=== PATIENT | female | born 1975 | race Caucasian/White ===

== ENCOUNTER → 2016-12-08 | Outpatient (CLI) | payer OTHER, MEDICAID ==
[~2016-12-08] MED LIST: AMBI10TA PO; AMBI5TAB PO; VENL75TA PO
== END ==
LOC: HPND 07:55
PROVIDERS: ATTEND Obstetrics & Gynecology
DX: O09.513 Supervision of elderly primigravida, third trimester (principal)
CPT/HCPCS: 76811

== ENCOUNTER → 2017-01-19 | Outpatient (CLI) | payer OTHER | LOC: HPND 08:04 | PROVIDERS: ATTEND Obstetrics & Gynecology | DX: O09.529 Supervision of elderly multigravida, unspecified trimester (principal) | CPT/HCPCS: 76816 ==

== ENCOUNTER 2017-02-06 11:23 | Inpatient (IN) | payer OTHER, MEDICAID ==
[2017-02-06] VITALS (10 sets, daily range): BP systolic 106–119; BP diastolic 57–68; PULSE 89–98; RESP 18; TEMP 97.6–98.5
[~2017-02-06] VITALS: Ht 170.2 cm; Wt 79.4 kg
[2017-02-06 12:23] LABS: BACTERIA, URINE RARE /hpf; BLOOD, URINE NEG (NEG); COMMENT (UR) CULT NOT INDICATED; CULTURE IF INDICATED CULT NOT INDICATED; GLUCOSE,URINE NEG (NEG); KETONE, URINE NEG (NEG); NITRITE,URINE NEG (NEG); PH, URINE 6.5 (5.0-8.5); SQUAMOUS EPITHELIAL CELL URINE <1 /hpf (0-5); URINE COLOR LIGHT-YELLOW (YELLW/STRAW)
--- NOTE | 2017-02-06 12:47 | PD ---
HPI Chief Complaint Ms. Vo Date Seen: Feb 06, 2017 Travel History International Travel<30 Days: No Contact w/Intl Traveler<30Days: No Known Affected Area: No History of Present Illness HPI Ms. Vo is a 41 yo at 28 5/7 weeks (KAT 04/26/2017) who presents with multiple complaints. Patient states that since Sunday, she has had "pressure" in her groin and feeling as if she is "bearing down." Patient also reports back pain. Patient states that some of this pain is constant, but that she also feels irregular contractions. Patient states that she lost her mucous plug Sunday which was associated with a "tinge of blood" patient denies any other vaginal bleeding since 24 weeks gestation. Patient reports decreased movement for the past 6 days. Patient states that she thought that she recently had rupture of membranes approximately one week ago but that she was previously evaluated and told she did not rupture. Patient reports shortness of breath secondary to pain. Patient denies chest pain. No significant headache, vision changes, or dysuria. Patient reports unremarkable history with exception of vaginal bleeding at 24 weeks gestation. Patient chronically has anxiety and ADHD; she takes Effexor and Ambien during . Patient took Klonopin and Adderall prior to learning she was but is not taking since. Para: 4 : 6 Miscarriage: 1 History Past Medical History Narrative Medical Anxiety Insomnia ADHD Eczema Obstetric History Obstetric History Most recent- delivery at 36 weeks GA, vaginal 3 prior vaginal deliveries from 3840 weeks GA 1 early miscarriage Past Surgical History Narrative Surgical Tonsillectomy Family History Family History: Negative Social History Alcohol Use: No Tobacco Use: No Substance Abuse: No Allergies-Medications (Allergen,Severity, Reaction): Coded Allergies: No Known Allergies (Verified , 06/13/09) Uncoded Allergies: SEASONAL (Allergy, Mild, 06/13/09) Review of Systems General / Constitutional: No: Fever, Chills Eyes: No: Blurred Vision HENT: No: Headaches Cardiovascular: No: Chest Pain or Discomfort Respiratory: Short of Breath (due to pain) Gastrointestinal: Abdominal Pain Genitourinary: No: Dysuria Psychiatric: Anxiety Physical Exam BP 129/84 HR 96 RR 16 T 98.2 Narrative GENERAL: Well-nourished, well-developed patient. SKIN: Warm and dry. HEAD: Normocephalic and atraumatic. EYES: No scleral icterus. No injection or drainage. ENT: No nasal drainage noted. Mucous membranes pink. Airway patent. NECK: Supple, trachea midline. No JVD. CARDIOVASCULAR: Regular rate and rhythm without murmurs, gallops, or rubs. RESPIRATORY: CTAB, normal rate ABDOMEN/GI: Abdomen soft, non-tender, bowel sounds present, no rebound, no guarding Gravid EXTREMITIES: No cyanosis or edema. BACK: Back pain present NEUROLOGICAL: Awake and alert. Motor and sensory function grossly within normal limits. GENITOURINARY: External Genitalia: intact and normal in appearance Dilatation: 0cm Membranes: Amnisure positive 2 Uterine Contractions: Uterine irritability FHT's: Category: 1 Baseline: 130 Reactive: Y Variability: Mod Decels: None Data Data Vital Signs Reviewed: Yes Orders Urinalysis - C+S If Indicated (02/06/17 12:06) Labs Laboratory Tests Test 02/06/17 11:50 Urine Color LIGHT-YELLOW Urine Turbidity CLEAR Urine pH 6.5 Urine Specific [place] 1.005 Urine Protein NEG Urine Glucose (UA) NEG Urine Ketones NEG Urine Occult Blood NEG Urine Nitrite NEG Urine Bilirubin NEG Urine Urobilinogen LESS THAN 2.0 Urine Leukocyte Esterase TRACE Urine WBC LESS THAN 1 Urine Squamous Epithelial <1 Cells Urine Bacteria RARE Microscopic Urinalysis Comment CULT NOT INDICATED MDM Medical Record Reviewed: Yes Narrative Course / MDM 41 yo at 28 5/7 weeks (KAT 04/26/2017) -Cat 1 rhythm -Abdominal pain -Amnisure + x2 Plan: -Will admit patient for PPROM -Will give betamethasone 12 mg every 24 hours to -Will give ampicillin/erythromycin -UDS ordered -CBC ordered -GBS ordered -We'll start IVF -We'll check ultrasound to evaluate amniotic fluid and cervical length Jean Burroughs MD R2 Feb 06, 2017 12:47
--- NOTE | 2017-02-06 13:21 | HHI.HP ---
HPI Chief Complaint Leakage of fluid abdominal pain, loss of mucous plug Date Seen: Feb 06, 2017 Travel History International Travel<30 Days: No Contact w/Intl Traveler<30Days: No Known Affected Area: No History of Present Illness HPI The patient is a 41-year-old white female now [address] West for care presents complaining of back pain ,back pressure ,lower abdominal pain ,leakage of fluid loss of her mucous plug, she denies vaginal bleeding. heart tones are within normal limits no regular contractions seen some uterine irritability noted. Patient's amnio sure today with positive twice Para: 4 : 6 History Obstetric History Obstetric History 4 vaginal deliveries last 36 weeks water broke that time prematurely Social History Alcohol Use: No Tobacco Use: No Substance Abuse: No Allergies-Medications (Allergen,Severity, Reaction): Coded Allergies: No Known Allergies (Verified , 06/13/09) Uncoded Allergies: SEASONAL (Allergy, Mild, 06/13/09) Review of Systems General / Constitutional: No: Fever, Weight Gain, Chills, Other Eyes: No: Diploplia, Blurred Vision, Visual changes, Pain, Photophobia HENT: No: Headaches, Vertigo, Lightheadedness Cardiovascular: No: Irregular Rhythm, Chest Pain or Discomfort, Palpitations, Tachycardia, Syncope, Varicosities, Edema, Cyanosis Respiratory: No: Cough, Short of Breath, Other Gastrointestinal: Abdominal Pain, No: Nausea, Vomiting, Diarrhea Genitourinary: Pelvic Pain, No: Decreased Urinary Output, Oliguria Musculoskeletal: No: Limited ROM, Weakness, Cramping, Edema, Pain Skin: No Rash, No Itching, No Dryness, No Lumps, No Change in Pigmentation, No Change in Nails, No Alopecia, No Lesions Neurologic: No: Weakness, Dizziness, Syncope, Focal Abnormalities, Coordination Problem, Headache, Slurred Speech, Seizures Psychiatric: No: Depression, Suicidal Ideations, Homicidal Ideation Endocrine: No: Heat Intolerance, Cold Intolerance, Polydipsia, Polyuria, Other Physical Exam Narrative GENERAL: Well-nourished, well-developed patient. SKIN: Warm and dry. HEAD: Normocephalic and atraumatic. EYES: No scleral icterus. No injection or drainage. ENT: No nasal drainage noted. Mucous membranes pink. Airway patent. NECK: Supple, trachea midline. No JVD. CARDIOVASCULAR: Regular rate and rhythm without murmurs, gallops, or rubs. RESPIRATORY: Breath sounds equal bilaterally. No accessory muscle use. BREASTS: Bilateral exam showed no masses , no retractions, no nipple discharge. ABDOMEN/GI: Abdomen soft, 1-2 + -tender in lower quads, bowel sounds present, no rebound, no guarding Gravid to [-28] weeks size Fundal Height: [-28] GENITOURINARY: External Genitalia: intact and normal in appearance spec exam -- minimal white discharge wet prep done cx appears thick and closed Cervix: [-] Dilatation: [-Closed] Effacement: [-] Thick Station: [-3] Membranes: ruptured] amnio sure positive twice a day Uterine Contractions: [Positive irritability-] FHT's: Category: [1-] Baseline: [-144] Reactive: [yes-] Variability: [mod-] Decels: Occasional variable-] EXTREMITIES: No cyanosis or edema. BACK: Nontender without obvious deformity. No CVA tenderness. NEUROLOGICAL: Awake and alert. Motor and sensory grossly within normal limits. Five out of 5 muscle strength in all muscle groups. Normal speech. Data Data Orders Urinalysis - C+S If Indicated (02/06/17 12:06) Labs Amnio sure positive 2 Laboratory Tests Test 02/06/17 11:50 Urine Color LIGHT-YELLOW Urine Turbidity CLEAR Urine pH 6.5 Urine Specific [place] 1.005 Urine Protein NEG Urine Glucose (UA) NEG Urine Ketones NEG Urine Occult Blood NEG Urine Nitrite NEG Urine Bilirubin NEG Urine Urobilinogen LESS THAN 2.0 Urine Leukocyte Esterase TRACE Urine WBC LESS THAN 1 Urine Squamous Epithelial <1 Cells Urine Bacteria RARE Microscopic Urinalysis Comment CULT NOT INDICATED Assessment/Plan Assessment and Plan This patient is 41-year-old white female 28 weeks presents planning of abdominal pain back pain and leakage of fluid on and off the minimal way, denies bleeding, baby is decreased movement, amnio sure positive twice today the plan to treat the patient has she is PPROM 28 weeks will get an ultrasound for fluid volume and cervical length. Her doctor Dr. West and will contact her and let her know patient is being admitted the hospital. Carter Guillen II, MD Feb 06, 2017 13:21
[2017-02-06] MEDS ORDERED: SODIUM CHLORIDE 0.9% FLUSH 10 ML FLUSH IV FLUSH PRN (13:30)
[2017-02-06] MEDS ORDERED: ONDANSETRON HCL 4 MG/2 ML VIAL IV PRN (13:30)
[2017-02-06] MEDS ORDERED: CALCIUM GLUCONATE 10% 1 GM/10 ML VIAL IV PRN (13:30)
[2017-02-06] MEDS ORDERED: ACETAMINOPHEN 325 MG TAB PO PRN (13:30)
[2017-02-06] MEDS: AMPICILLIN INJ 2,000 MG in SODIUM CHLORIDE 0.9% INJ 100 ML IV SCH ×3 (14:33→22:37)
[2017-02-06] MEDS: LACTATED RINGER'S 1000 ML INJ 1,000 ML IV SCH ×2 (14:34→22:37)
[2017-02-06] MEDS: BETAMETHASONE SOD PHOS/ACETATE SUSP 30 MG/5 ML VIAL IM SCH (14:34)
[2017-02-06 14:40] LABS: AMPHETAMINE, URINE NEG (NEG); BARBITURATES, URINE NEG (NEG); COCAINE, URINE NEG (NEG)
[2017-02-06] MEDS: ERYTHROMYCIN ETHYLSUCCINATE 400 MG TAB PO SCH ×2 (18:04→22:38)
[2017-02-06 18:28] LABS: AUTOMATED NEUTROPHIL # 12.4 TH/MM3 (1.8-7.7); BASOPHIL # 0.1 TH/MM3 (0-0.2); BASOPHIL % 0.5 % (0.0-2.0); EOSINOPHIL # 0.2 TH/MM3 (0-0.4); EOSINOPHIL % 1.2 % (0.0-4.0); HEMATOCRIT 31.7 % (35.0-46.0); LYMPH % 12.5 % (9.0-44.0); MEAN CELL VOLUME 71.6 FL (80.0-100.0); MEAN CORPUSCULAR HEMOGLOBIN 21.8 PG (27.0-34.0); MEAN CORPUSCULAR HGB CONC 30.5 % (32.0-36.0); MONO % 6.5 % (0.0-8.0); NEUT % 79.3 % (16.0-70.0); PLATELET COUNT 252 TH/MM3 (150-450); RED BLOOD COUNT 4.44 MIL/MM3 (4.00-5.30); RED CELL DISTRIBUTION WIDTH 16.7 % (11.6-17.2); WHITE BLOOD COUNT 15.7 TH/MM3 (4.0-11.0)
[2017-02-06 18:30] LABS: HEMO FLAGS AUTO DIFF
[2017-02-06 18:34] LABS: ALT (GPT) 13 U/L (10-53); AST (GOT) 20 U/L (15-37); URIC ACID 3.2 MG/DL (2.6-6.0)
[2017-02-06 18:36] LABS: ALKALINE PHOSPHATASE 114 U/L (45-117); INDIRECT BILIRUBIN 0.3 MG/DL (0.0-0.8); TOTAL BILIRUBIN ADULT 0.4 MG/DL (0.2-1.0)
[2017-02-06 19:17] LABS: PLATELET ESTIMATE SMEAR NORMAL (NORMAL); PLATELET MORPHOLOGY NORMAL (NORMAL); SCAN/DIFF AUTO DIFF CONFIRMED
[2017-02-06] MEDS: SODIUM CHLORIDE 0.9% FLUSH 10 ML FLUSH IV FLUSH SCH (21:00)
[2017-02-06] MEDS: ZOLPIDEM TARTRATE 5 MG TAB PO PRN (22:38)
--- NOTE | 2017-02-06 22:41 | PD.LABORPN ---
Subjective Subjective pt states she came in for pain and pelvic pressure, not LOF. states she constantly feels wet. pt was evaluated on 01/27 at [facility] with neg amnisure Objective Vital Signs Vital Signs Date Time Temp Pulse Resp B/P Pulse Ox O2 Delivery O2 Flow Rate FiO2 02/06/17 22:02 18 02/06/17 19:39 18 02/06/17 19:38 98 119/57 02/06/17 19:36 98.5 02/06/17 18:00 97.6 02/06/17 18:00 97.7 02/06/17 17:00 18 02/06/17 16:46 98 118/64 02/06/17 15:00 97.9 18 Objective Abd gravid, NT Ext NT, no edema FHT's: Category: [-] 1 Baseline: [-] Reactive: [-] Variability: [-] Decels: [-] Assessment/Plan Problem List: (1) premature rupture of membranes in third trimester Plan: cont abx, steroids, watch for s/sx of chorio, will repeat KULDEEP in 1 wk if stable, sooner prn reviewed condition with pt and FOB. all questions answered Bartolo West MD Feb 06, 2017 22:41
[2017-02-07] VITALS (12 sets, daily range): BP systolic 103–116; BP diastolic 51–69; PULSE 92–120; RESP 17–18; TEMP 98.1–98.2
[2017-02-07] MEDS: AMPICILLIN INJ 2,000 MG in SODIUM CHLORIDE 0.9% INJ 100 ML IV SCH ×6 (02:00→22:04)
[2017-02-07] MEDS: ERYTHROMYCIN ETHYLSUCCINATE 400 MG TAB PO SCH ×4 (06:00→23:59)
[2017-02-07 06:07] LABS: AUTOMATED NEUTROPHIL # 14.9 TH/MM3 (1.8-7.7); BASOPHIL % 0.1 % (0.0-2.0); HEMATOCRIT 27.5 % (35.0-46.0); LYMPH % 5.3 % (9.0-44.0); LYMPHOCYTE # 0.9 TH/MM3 (1.0-4.8); MEAN CELL VOLUME 69.6 FL (80.0-100.0); MEAN CORPUSCULAR HEMOGLOBIN 22.4 PG (27.0-34.0); MEAN CORPUSCULAR HGB CONC 32.2 % (32.0-36.0); MONO % 3.6 % (0.0-8.0); PLATELET COUNT 236 TH/MM3 (150-450); RED BLOOD COUNT 3.94 MIL/MM3 (4.00-5.30); RED CELL DISTRIBUTION WIDTH 16.7 % (11.6-17.2); WHITE BLOOD COUNT 16.3 TH/MM3 (4.0-11.0)
[2017-02-07 06:11] LABS: HEMO FLAGS AUTO DIFF
[2017-02-07 07:42] LABS: SCAN/DIFF AUTO DIFF CONFIRMED
[2017-02-07] MEDS ORDERED: VENL75TA PO (08:10)
[2017-02-07] MEDS ORDERED: AMBI10TA PO (08:13)
[2017-02-07] MEDS: SODIUM CHLORIDE 0.9% FLUSH 10 ML FLUSH IV FLUSH SCH ×2 (09:00→22:05)
[2017-02-07] MEDS: MULTIVIT/MIN/PREN/FOL AC/IRON PRENATAL TAB PO SCH (09:40)
[2017-02-07] MEDS: LACTATED RINGER'S 1000 ML INJ 1,000 ML IV SCH (13:30)
[2017-02-07] MEDS: BETAMETHASONE SOD PHOS/ACETATE SUSP 30 MG/5 ML VIAL IM SCH (14:07)
[2017-02-07] MEDS: PANTOPRAZOLE SODIUM 40 MG VIAL IV PUSH SCH (14:32)
--- NOTE | 2017-02-07 21:17 | PD.OB.ANTE ---
Subjective Diagnosis: (1) premature rupture of membranes in third trimester Interval History pt continues to c/o LOF with movement. +FM, occasional cramping. denies vaginal bleeding. pt c/o sob/anxiety prior to receiving her effexor this am, states symptoms resolved shortly after she took her effexor. Objective Vital Signs Vital Signs Date Time Temp Pulse Resp B/P Pulse Ox O2 Delivery O2 Flow Rate FiO2 02/07/17 11:37 104 114/54 02/07/17 10:45 120 02/07/17 10:29 98.1 02/07/17 10:25 117 02/07/17 10:23 115 103/56 02/07/17 10:20 117 02/07/17 10:16 17 02/07/17 10:15 112 111/51 02/07/17 08:00 98.2 18 02/07/17 07:57 102 116/69 02/07/17 06:26 18 02/07/17 06:22 92 108/59 02/06/17 23:00 98.5 18 02/06/17 22:59 89 106/60 02/06/17 22:02 18 Lab & Micro Results Test 02/06/17 02/07/17 22:30 05:20 Group B Streptococcus (PCR) POSITIVE White Blood Count 16.3 TH/MM3 Red Blood Count 3.94 MIL/MM3 Hemoglobin 8.8 GM/DL Hematocrit 27.5 % Mean Corpuscular Volume 69.6 FL Mean Corpuscular Hemoglobin 22.4 PG Mean Corpuscular Hemoglobin 32.2 % Concent Red Cell Distribution Width 16.7 % Platelet Count 236 TH/MM3 Mean Platelet Volume 9.3 FL Neutrophils (%) (Auto) 91.0 % Lymphocytes (%) (Auto) 5.3 % Monocytes (%) (Auto) 3.6 % Eosinophils (%) (Auto) 0.0 % Basophils (%) (Auto) 0.1 % Neutrophils # (Auto) 14.9 TH/MM3 Lymphocytes # (Auto) 0.9 TH/MM3 Monocytes # (Auto) 0.6 TH/MM3 Eosinophils # (Auto) 0.0 TH/MM3 Basophils # (Auto) 0.0 TH/MM3 CBC Comment AUTO DIFF Differential Comment AUTO DIFF CONFIRMED Physical Exam GENERAL: Well-nourished, well-developed patient. CARDIOVASCULAR: Regular rate and rhythm without murmurs, gallops, or rubs. RESPIRATORY: Breath sounds equal bilaterally. No accessory muscle use. ABDOMEN/GI: Abdomen soft, non-tender. Fundus: [-] GENITOURINARY: FHT's: Category: [-] 1 Baseline: [-] Reactive: [-] Variability: [-] Decels: [-] EXTREMITIES: No cyanosis or edema, non-tender, without signs of DVT. Assessment and Plan Problem List: (1) premature rupture of membranes in third trimester Status: Acute Assessment & Plan: cont abx day 2 s/p steroids watch for s/sx of chorio, will repeat KULDEEP on sunday with an KULDEEP check, sooner prBartolo Bonilla MD Feb 07, 2017 21:17
[2017-02-07] MEDS: ZOLPIDEM TARTRATE 5 MG TAB PO PRN (22:03)
[2017-02-08] MEDS: AMPICILLIN INJ 2,000 MG in SODIUM CHLORIDE 0.9% INJ 100 ML IV SCH ×6 (02:12→21:17)
[2017-02-08] MEDS: ERYTHROMYCIN ETHYLSUCCINATE 400 MG TAB PO SCH ×4 (05:58→23:54)
[2017-02-08 06:03] LABS: AUTOMATED NEUTROPHIL # 17.7 TH/MM3 (1.8-7.7); BASOPHIL % 0.1 % (0.0-2.0); HEMATOCRIT 27.3 % (35.0-46.0); LYMPH % 6.9 % (9.0-44.0); LYMPHOCYTE # 1.4 TH/MM3 (1.0-4.8); MEAN CORPUSCULAR HEMOGLOBIN 22.1 PG (27.0-34.0); MEAN CORPUSCULAR HGB CONC 31.2 % (32.0-36.0); MONO % 4.7 % (0.0-8.0); NEUT % 88.3 % (16.0-70.0); PLATELET COUNT 235 TH/MM3 (150-450); RED BLOOD COUNT 3.84 MIL/MM3 (4.00-5.30); RED CELL DISTRIBUTION WIDTH 16.6 % (11.6-17.2)
[2017-02-08 06:04] LABS: HEMO FLAGS AUTO DIFF
[2017-02-08 07:20] LABS: BANDS 7 % (0-6); EOSINOPHILS 1 % (0-4); NEUTROPHIL # MANUAL DIFF 17.4 TH/MM3 (1.8-7.7); POLYS (SEG NEUTROPHILS) 80 % (16-70); WBC DIFF SAMPLE 100
[2017-02-08 07:21] LABS: OVALOCYTES 1+ (NORMAL); PLATELET ESTIMATE SMEAR NORMAL (NORMAL); PLATELET MORPHOLOGY NORMAL (NORMAL); SCAN/DIFF FINAL DIFF MANUAL
[2017-02-08] MEDS: VENLAFAXINE HCL XR 75 MG CAP PO SCH (08:32)
[2017-02-08] MEDS: MULTIVIT/MIN/PREN/FOL AC/IRON PRENATAL TAB PO SCH (08:32)
[2017-02-08] MEDS: SODIUM CHLORIDE 0.9% FLUSH 10 ML FLUSH IV FLUSH SCH ×2 (08:33→21:00)
[2017-02-08] MEDS: PANTOPRAZOLE SODIUM 40 MG VIAL IV PUSH SCH (14:11)
[2017-02-08] MEDS: FERROUS SULFATE 325 MG (65 MG ELEMENTAL IRON) TAB PO SCH (21:16)
[2017-02-08] MEDS: DOCUSATE SODIUM 100 MG CAP PO SCH (21:16)
--- NOTE | 2017-02-08 22:50 | PD.OB.ANTE ---
Subjective Diagnosis: (1) premature rupture of membranes in third trimester Interval History +FM, LOF with standing and sitting up. +increased pressure and cramping. denies vaginal bleeding. Objective Lab & Micro Results Test 02/08/17 04:39 White Blood Count 20.0 TH/MM3 Red Blood Count 3.84 MIL/MM3 Hemoglobin 8.5 GM/DL Hematocrit 27.3 % Mean Corpuscular Volume 71.0 FL Mean Corpuscular Hemoglobin 22.1 PG Mean Corpuscular Hemoglobin 31.2 % Concent Red Cell Distribution Width 16.6 % Platelet Count 235 TH/MM3 Mean Platelet Volume 9.2 FL Neutrophils (%) (Auto) 88.3 % Lymphocytes (%) (Auto) 6.9 % Monocytes (%) (Auto) 4.7 % Eosinophils (%) (Auto) 0.0 % Basophils (%) (Auto) 0.1 % Neutrophils # (Auto) 17.7 TH/MM3 Lymphocytes # (Auto) 1.4 TH/MM3 Monocytes # (Auto) 1.0 TH/MM3 Eosinophils # (Auto) 0.0 TH/MM3 Basophils # (Auto) 0.0 TH/MM3 CBC Comment AUTO DIFF Differential Total Cells 100 Counted Neutrophils % (Manual) 80 % Band Neutrophils % 7 % Lymphocytes % 6 % Monocytes % 6 % Eosinophils % 1 % Neutrophils # (Manual) 17.4 TH/MM3 Differential Comment FINAL DIFF MANUAL Platelet Estimate NORMAL Platelet Morphology Comment NORMAL Ovalocytes 1+ Physical Exam GENERAL: Well-nourished, well-developed patient. CARDIOVASCULAR: Regular rate and rhythm without murmurs, gallops, or rubs. RESPIRATORY: Breath sounds equal bilaterally. No accessory muscle use. ABDOMEN/GI: Abdomen soft, non-tender. Fundus: [-] GENITOURINARY: External Genitalia: intact and normal in appearance, + evidence of LOF FHT's: Category: [-] 1 Baseline: [-] Reactive: [-] Variability: [-] Decels: [-] EXTREMITIES: No cyanosis or edema, non-tender, without signs of DVT. Assessment and Plan Problem List: (1) premature rupture of membranes in third trimester Status: Acute Assessment & Plan: cont abx day 3 s/p steroids watch for s/sx of chorio, will repeat KULDEEP on sunday with an KULDEEP check, sooner prn start iron and colace cont effexor West,Tedra E. MD Feb 08, 2017 22:50
[2017-02-09] MEDS: AMPICILLIN INJ 2,000 MG in SODIUM CHLORIDE 0.9% INJ 100 ML IV SCH ×3 (02:00→09:26)
[2017-02-09 06:00] LABS: AUTOMATED NEUTROPHIL # 15.1 TH/MM3 (1.8-7.7); BASOPHIL % 0.2 % (0.0-2.0); EOSINOPHIL # 0.1 TH/MM3 (0-0.4); EOSINOPHIL % 0.4 % (0.0-4.0); HEMATOCRIT 26.4 % (35.0-46.0); LYMPH % 8.4 % (9.0-44.0); LYMPHOCYTE # 1.6 TH/MM3 (1.0-4.8); MEAN CELL VOLUME 70.7 FL (80.0-100.0); MEAN CORPUSCULAR HEMOGLOBIN 22.3 PG (27.0-34.0); MEAN CORPUSCULAR HGB CONC 31.5 % (32.0-36.0); PLATELET COUNT 242 TH/MM3 (150-450); RED BLOOD COUNT 3.74 MIL/MM3 (4.00-5.30); RED CELL DISTRIBUTION WIDTH 16.7 % (11.6-17.2); WHITE BLOOD COUNT 18.4 TH/MM3 (4.0-11.0)
[2017-02-09] MEDS: ERYTHROMYCIN ETHYLSUCCINATE 400 MG TAB PO SCH ×3 (06:00→17:59)
[2017-02-09 06:03] LABS: HEMO FLAGS AUTO DIFF
[2017-02-09 07:02] LABS: OVALOCYTES 1+ (NORMAL); PLATELET ESTIMATE SMEAR NORMAL (NORMAL); PLATELET MORPHOLOGY NORMAL (NORMAL); SCAN/DIFF AUTO DIFF CONFIRMED
[2017-02-09] MEDS: SODIUM CHLORIDE 0.9% FLUSH 10 ML FLUSH IV FLUSH SCH (09:26)
[2017-02-09] MEDS: FERROUS SULFATE 325 MG (65 MG ELEMENTAL IRON) TAB PO SCH ×2 (09:26→21:11)
[2017-02-09] MEDS: DOCUSATE SODIUM 100 MG CAP PO SCH ×2 (09:26→21:11)
[2017-02-09] MEDS: MULTIVIT/MIN/PREN/FOL AC/IRON PRENATAL TAB PO SCH (09:26)
[2017-02-09] MEDS: VENLAFAXINE HCL XR 75 MG CAP PO SCH (10:12)
[2017-02-09 10:18] LABS: BATH SALTS (MDPV) UR NEG (NEG); ECSTASY (MDMA) UR NEG (NEG); GABAPENTIN UR NEG (NEG); HEROIN (6-ACETYLMORPHINE) UR NEG (NEG); HYDROMORPHONE U NEG (NEG); K2 SPICE UR NEG (NEG); OBMETHADONE UR NEG (NEG); OXYCODONE (PERCODAN) NEG (NEG); PHENCYCLIDINE URINE NEG (NEG)
--- NOTE | 2017-02-09 12:39 | PD.OB.ANTE ---
Subjective Diagnosis: (1) premature rupture of membranes in third trimester Antepartum ROS: Reports: Loss of fluid (continues with movement), movement normal Objective Lab & Micro Results Test 02/09/17 05:27 White Blood Count 18.4 TH/MM3 Red Blood Count 3.74 MIL/MM3 Hemoglobin 8.3 GM/DL Hematocrit 26.4 % Mean Corpuscular Volume 70.7 FL Mean Corpuscular Hemoglobin 22.3 PG Mean Corpuscular Hemoglobin 31.5 % Concent Red Cell Distribution Width 16.7 % Platelet Count 242 TH/MM3 Mean Platelet Volume 8.8 FL Neutrophils (%) (Auto) 82.0 % Lymphocytes (%) (Auto) 8.4 % Monocytes (%) (Auto) 9.0 % Eosinophils (%) (Auto) 0.4 % Basophils (%) (Auto) 0.2 % Neutrophils # (Auto) 15.1 TH/MM3 Lymphocytes # (Auto) 1.6 TH/MM3 Monocytes # (Auto) 1.7 TH/MM3 Eosinophils # (Auto) 0.1 TH/MM3 Basophils # (Auto) 0.0 TH/MM3 CBC Comment AUTO DIFF Differential Comment AUTO DIFF CONFIRMED Platelet Estimate NORMAL Platelet Morphology Comment NORMAL Ovalocytes 1+ Physical Exam GENERAL: Well-nourished, well-developed patient. CARDIOVASCULAR: Regular rate and rhythm without murmurs, gallops, or rubs. RESPIRATORY: Breath sounds equal bilaterally. No accessory muscle use. ABDOMEN/GI: Abdomen soft, non-tender. Fundus: [-] GENITOURINARY: FHT's: Category: [-] 1 Baseline: [-] Reactive: [-] Variability: [-] Decels: [-] EXTREMITIES: No cyanosis or edema, non-tender, without signs of DVT. Assessment and Plan Problem List: (1) premature rupture of membranes in third trimester Status: Acute Assessment & Plan: cont abx day 3, now on po s/p steroids 02/06 and 02/07 watch for s/sx of chorio, will repeat KULDEEP on sunday with an KULDEEP check, sooner prn cont iron and colace cont effexor Bartolo West MD Feb 09, 2017 12:38
[2017-02-09] MEDS: PANTOPRAZOLE SODIUM 40 MG VIAL IV PUSH SCH (13:50)
[2017-02-09] MEDS: AMOXICILLIN/CLAVULANATE K 500 MG TAB PO SCH (21:11)
[2017-02-09] MEDS: ZOLPIDEM TARTRATE 5 MG TAB PO PRN (21:15)
[2017-02-10] MEDS: ERYTHROMYCIN ETHYLSUCCINATE 400 MG TAB PO SCH ×4 (00:12→17:50)
--- NOTE | 2017-02-10 08:28 | PD.OB.ANTE ---
Subjective Diagnosis: (1) premature rupture of membranes in third trimester Diagnosis: Principal Antepartum ROS: Reports: Loss of fluid Objective Vital Signs stable Physical Exam GENERAL: Well-nourished, well-developed patient. . ABDOMEN/GI: Abdomen soft, non-tender. Fundus: [-] GENITOURINARY: External Genitalia: intact and normal in appearance Cervix: not checked Dilatation: [-] Effacement: [-] Station: [-] Presentation: [-] Membranes: [-] Uterine Contractions: [-] FHT's: Category: [-] Baseline: [-] Reactive: [-] Variability: [-] Decels: [-] EXTREMITIES: No cyanosis or edema, non-tender, without signs of DVT. Assessment and Plan Problem List: (1) premature rupture of membranes in third trimester Status: Acute Assessment & Plan: cont abx day 4, now on po s/p steroids 02/06 and 02/07 watch for s/sx of chorio, will repeat KULDEEP on sunday with an KULDEEP check, sooner prn cont iron and colace cont effexor CBC done 12/12 Brian Coyne MD Feb 10, 2017 08:28
[2017-02-10] MEDS: FERROUS SULFATE 325 MG (65 MG ELEMENTAL IRON) TAB PO SCH ×2 (08:30→21:38)
[2017-02-10] MEDS: AMOXICILLIN/CLAVULANATE K 500 MG TAB PO SCH ×2 (08:30→21:38)
[2017-02-10] MEDS: MULTIVIT/MIN/PREN/FOL AC/IRON PRENATAL TAB PO SCH (08:30)
[2017-02-10] MEDS: DOCUSATE SODIUM 100 MG CAP PO SCH ×2 (08:30→21:38)
[2017-02-10] MEDS: VENLAFAXINE HCL XR 75 MG CAP PO SCH (08:30)
[2017-02-10] MEDS: SODIUM CHLORIDE 0.9% FLUSH 10 ML FLUSH IV FLUSH SCH ×2 (09:00→21:00)
[2017-02-10] MEDS: ZOLPIDEM TARTRATE 5 MG TAB PO PRN (21:55)
[2017-02-11] MEDS: ERYTHROMYCIN ETHYLSUCCINATE 400 MG TAB PO SCH ×4 (00:10→18:03)
[2017-02-11] MEDS: AMOXICILLIN/CLAVULANATE K 500 MG TAB PO SCH ×2 (08:51→21:54)
[2017-02-11] MEDS: FERROUS SULFATE 325 MG (65 MG ELEMENTAL IRON) TAB PO SCH ×2 (08:51→21:54)
[2017-02-11] MEDS: VENLAFAXINE HCL XR 75 MG CAP PO SCH (08:51)
[2017-02-11] MEDS: DOCUSATE SODIUM 100 MG CAP PO SCH ×2 (08:52→21:54)
[2017-02-11] MEDS: MULTIVIT/MIN/PREN/FOL AC/IRON PRENATAL TAB PO SCH (08:53)
[2017-02-11] MEDS: SODIUM CHLORIDE 0.9% FLUSH 10 ML FLUSH IV FLUSH SCH (09:00)
--- NOTE | 2017-02-11 10:04 | PD.OB.ANTE ---
Subjective Diagnosis: (1) premature rupture of membranes in third trimester Diagnosis: Principal Antepartum ROS: Reports: movement normal Objective Physical Exam GENERAL: Well-nourished, well-developed patient. CARDIOVASCULAR: Regular rate and rhythm without murmurs, gallops, or rubs. RESPIRATORY: Breath sounds equal bilaterally. No accessory muscle use. ABDOMEN/GI: Abdomen soft, non-tender. Fundus: [-] GENITOURINARY: External Genitalia: intact and normal in appearance Cervix: deferred Dilatation: [-] Effacement: [-] Station: [-] Presentation: [-] Membranes: [-] Uterine Contractions: [-] FHT's: Category: [-] Baseline: [-] Reactive: [-] Variability: [-] Decels: [-] EXTREMITIES: No cyanosis or edema, non-tender, without signs of DVT. Assessment and Plan Problem List: (1) premature rupture of membranes in third trimester Status: Acute Assessment & Plan: cont abx day 5, now on po s/p steroids 02/06 and 02/07 watch for s/sx of chorio, will repeat KULDEEP on sunday with an KULDEEP check, sooner prn cont iron and colace cont effexor CBC for 02/12/2017 Brian Coyne MD Feb 11, 2017 10:04
[2017-02-11] MEDS ORDERED: LORazepam 1 MG TAB PO PRN (15:00)
[2017-02-11] MEDS: ZOLPIDEM TARTRATE 5 MG TAB PO PRN (21:54)
[2017-02-12] MEDS: ERYTHROMYCIN ETHYLSUCCINATE 400 MG TAB PO SCH ×5 (00:59→23:57)
[2017-02-12 06:16] LABS: AUTOMATED NEUTROPHIL # 13.7 TH/MM3 (1.8-7.7); BASOPHIL % 0.1 % (0.0-2.0); EOSINOPHIL # 0.4 TH/MM3 (0-0.4); EOSINOPHIL % 2.3 % (0.0-4.0); HEMATOCRIT 28.2 % (35.0-46.0); LYMPH % 11.2 % (9.0-44.0); MEAN CELL VOLUME 70.1 FL (80.0-100.0); MEAN CORPUSCULAR HEMOGLOBIN 22.3 PG (27.0-34.0); MEAN CORPUSCULAR HGB CONC 31.8 % (32.0-36.0); NEUT % 77.4 % (16.0-70.0); PLATELET COUNT 270 TH/MM3 (150-450); RED BLOOD COUNT 4.02 MIL/MM3 (4.00-5.30); RED CELL DISTRIBUTION WIDTH 17.2 % (11.6-17.2); WHITE BLOOD COUNT 17.7 TH/MM3 (4.0-11.0)
[2017-02-12 06:22] LABS: HEMO FLAGS AUTO DIFF
[2017-02-12 08:12] LABS: BANDS 1 % (0-6); EOSINOPHILS 1 % (0-4); METAMYELOCYTES 1 % (0-1); MYELOCYTES 2 % (0-0); NEUTROPHIL # MANUAL DIFF 14.2 TH/MM3 (1.8-7.7); PLATELET ESTIMATE SMEAR NORMAL (NORMAL); PLATELET MORPHOLOGY ENLARGED (NORMAL); POLYS (SEG NEUTROPHILS) 76 % (16-70); WBC DIFF SAMPLE 100
[2017-02-12 08:13] LABS: SCAN/DIFF FINAL DIFF MANUAL
[2017-02-12] MEDS: SODIUM CHLORIDE 0.9% FLUSH 10 ML FLUSH IV FLUSH SCH ×3 (09:00→21:13)
[2017-02-12] MEDS: DOCUSATE SODIUM 100 MG CAP PO SCH ×2 (09:03→21:13)
[2017-02-12] MEDS: VENLAFAXINE HCL XR 75 MG CAP PO SCH (09:03)
[2017-02-12] MEDS: FERROUS SULFATE 325 MG (65 MG ELEMENTAL IRON) TAB PO SCH ×2 (09:03→21:14)
[2017-02-12] MEDS: MULTIVIT/MIN/PREN/FOL AC/IRON PRENATAL TAB PO SCH (09:03)
[2017-02-12] MEDS: AMOXICILLIN/CLAVULANATE K 500 MG TAB PO SCH ×2 (09:03→21:13)
--- NOTE | 2017-02-12 11:32 | PD.OB.ANTE ---
Subjective Diagnosis: (1) premature rupture of membranes in third trimester Interval History pt continues to c/o of intermittent LOF and vaginal dryness/irritation Objective Lab & Micro Results Test 02/12/17 05:04 White Blood Count 17.7 TH/MM3 Red Blood Count 4.02 MIL/MM3 Hemoglobin 9.0 GM/DL Hematocrit 28.2 % Mean Corpuscular Volume 70.1 FL Mean Corpuscular Hemoglobin 22.3 PG Mean Corpuscular Hemoglobin 31.8 % Concent Red Cell Distribution Width 17.2 % Platelet Count 270 TH/MM3 Mean Platelet Volume 9.1 FL Neutrophils (%) (Auto) 77.4 % Lymphocytes (%) (Auto) 11.2 % Monocytes (%) (Auto) 9.0 % Eosinophils (%) (Auto) 2.3 % Basophils (%) (Auto) 0.1 % Neutrophils # (Auto) 13.7 TH/MM3 Lymphocytes # (Auto) 2.0 TH/MM3 Monocytes # (Auto) 1.6 TH/MM3 Eosinophils # (Auto) 0.4 TH/MM3 Basophils # (Auto) 0.0 TH/MM3 CBC Comment AUTO DIFF Differential Total Cells 100 Counted Neutrophils % (Manual) 76 % Band Neutrophils % 1 % Lymphocytes % 15 % Monocytes % 4 % Eosinophils % 1 % Neutrophils # (Manual) 14.2 TH/MM3 Metamyelocytes 1 % Myelocytes 2 % Differential Comment FINAL DIFF MANUAL Platelet Estimate NORMAL Platelet Morphology Comment ENLARGED Physical Exam GENERAL: Well-nourished, well-developed patient. CARDIOVASCULAR: Regular rate and rhythm without murmurs, gallops, or rubs. RESPIRATORY: Breath sounds equal bilaterally. No accessory muscle use. ABDOMEN/GI: Abdomen soft, non-tender. Fundus: [-] GENITOURINARY: External Genitalia: intact and normal in appearance Cervix: [-] visually closed SPEC: grossly nl vaginal d/c, no pooling noted FHT's: Category: [-] 1 Baseline: [-] 140s EXTREMITIES: No cyanosis or edema, non-tender, without signs of DVT. Assessment and Plan Problem List: (1) premature rupture of membranes in third trimester Status: Acute Assessment & Plan: cont abx day 6, now on po s/p steroids 02/06 and 02/07 no s/sx of chorio, will repeat KULDEEP on tmorrow with a MFM consult repeat amnisure today was negative, suspect pt may have sealed over cont iron and colace cont effexor Bartolo West MD February 12, 2017 11:31
[2017-02-12] MEDS: BETAMETHASONE/CLOTRIMAZOLE CREAM 15 GM TOPICAL SCH ×2 (16:09→21:15)
[2017-02-12] MEDS ORDERED: TERCONAZOLE 0.4% VAG CR 45 GM TUBE VAGINAL SCH (21:00)
[2017-02-12] MEDS: ZOLPIDEM TARTRATE 5 MG TAB PO PRN (21:14)
[2017-02-13] MEDS: ERYTHROMYCIN ETHYLSUCCINATE 400 MG TAB PO SCH ×2 (06:05→11:50)
[2017-02-13] MEDS: BETAMETHASONE/CLOTRIMAZOLE CREAM 15 GM TOPICAL SCH (09:21)
[2017-02-13] MEDS: AMOXICILLIN/CLAVULANATE K 500 MG TAB PO SCH (09:21)
[2017-02-13] MEDS: FERROUS SULFATE 325 MG (65 MG ELEMENTAL IRON) TAB PO SCH (09:21)
[2017-02-13] MEDS: VENLAFAXINE HCL XR 75 MG CAP PO SCH (09:21)
[2017-02-13] MEDS: MULTIVIT/MIN/PREN/FOL AC/IRON PRENATAL TAB PO SCH (09:21)
[2017-02-13] MEDS: DOCUSATE SODIUM 100 MG CAP PO SCH (09:21)
[2017-02-13] MEDS: SODIUM CHLORIDE 0.9% FLUSH 10 ML FLUSH IV FLUSH SCH (09:30)
[2017-02-13] MEDS ORDERED: AMBI5TAB PO (13:37)
--- NOTE | 2017-02-13 23:13 | HHI.DS ---
Admission Date Feb 06, 2017 at 13:14 Discharge Date: February 13, 2017 Admitting Diagnosis PPROM at 28 wks Diagnosis: Brief History Ms. Vo is a 41 yo at 28 5/7 weeks (KAT 04/26/2017) who presents with multiple complaints. Patient states that since Sunday, she has had "pressure" in her groin and feeling as if she is "bearing down." Patient also reports back pain. Patient states that some of this pain is constant, but that she also feels irregular contractions. Patient states that she lost her mucous plug Sunday which was associated with a "tinge of blood" patient denies any other vaginal bleeding since 24 weeks gestation. Patient reports decreased movement for the past 6 days. Patient states that she thought that she recently had rupture of membranes approximately one week ago but that she was previously evaluated and told she did not rupture. Patient reports shortness of breath secondary to pain. Patient denies chest pain. No significant headache, vision changes, or dysuria. Patient reports unremarkable history with exception of vaginal bleeding at 24 weeks gestation. Patient chronically has anxiety and ADHD; she takes Effexor and Ambien during . Patient took Klonopin and Adderall prior to learning she was but is not taking since. Hospital Course pt was admitted on 02/06. she was given steroids and treated with antibiotics for 7 days. on day 6, pt c/o of vaginal irritation and dryness, a sterile speculum exam was performed and no pooling or blood was noted. also another amnisure was collected and it was negative. On day 7 another u/s was performed the patients KULDEEP remained normal and essentially unchanged from 02/06 at 16. The case was reviewed with Dr. Garcia ([facility]) who suggested that the patient could have sealed over a high leak and felt patient could be sent home with close outpatient follow up (twice per week) and infections precautions. All of the above was reviewed with the patient. She agrees to close follow up and will call or come in with any concerns. Pt Condition on Discharge: Stable Discharge Disposition: Discharge Home Discharge Instructions Diet Instructions: As Tolerated, No Restrictions Activities You Can Perform: Continue Bedrest Activities to Avoid: Weight Bearing, Prolonged Standing, Strenuous Activity, Sexual Activity Additional Activity Instruc.: modified bedrest for remainder of Bartolo West MD February 13, 2017 23:13
== END 2017-02-13 14:57 | disposition home or self-care (01) | DRG 781 ==
LOC: HOBED 11:23 → H2EB 13:14
PROVIDERS: ADMIT Obstetrics & Gynecology; ATTEND Obstetrics & Gynecology
DX: O42.913 Preterm premature rupture of membranes, unspecified as to length of time between rupture and onset of labor, third trimester (principal); O99.343 Other mental disorders complicating pregnancy, third trimester; F41.9 Anxiety disorder, unspecified; F90.9 Attention-deficit hyperactivity disorder, unspecified type; N89.8 Other specified noninflammatory disorders of vagina; Z3A.28 28 weeks gestation of pregnancy
CPT/HCPCS: 76815; 76816; 80076; 80307; 81001; 84112; 84550; 85007; 85025; 85027; 87150; 87210; 99285; C9113; G0481; J0290; J0702; J7120

== ENCOUNTER 2017-02-20 13:13 | Emergency (ER) | payer OTHER ==
[2017-02-20 13:34] VITALS: BP 140/91; PULSE 123
[2017-02-20 13:40] VITALS: RESP 20; TEMP 98
--- NOTE | 2017-02-20 14:12 | PD ---
HPI Chief Complaint concern for ROM Date Seen: February 20, 2017 (Jean Burroughs MD R2) Travel History International Travel<30 Days: No Contact w/Intl Traveler<30Days: No (Jean Burroughs MD R2) History of Present Illness HPI Mrs. Vo is a 41-year-old patient of Dr. West at 30 5/7 weeks ( KAT 04/26/2017) who presents at request of Dr. West for Amnisure and assessment of amniotic fluid index via ultrasound. [Per nursing discussion w/ Dr. West, patient with +nitrizine, negative pooling and no ferning in office. ] Patient states that she was laying down in bed Sunday when she noticed "gushing" of approximately 1012 ounces of clear fluid which she states was not urine. Patient reports continued intermittent leaking of clearish fluid from her vagina since then. Patient denies any vaginal bleeding. Patient reports feeling her gestation move less for the past approximately 2 weeks but still feels movement. Patient denies any feelings of contractions. Patient does not report other complaints such as chest pain, shortness of breath, leg swelling, dysuria, or fever/chills. Per review of records, patient was recently admitted 02/06 for concern for ROM; patient was treated with betamethasone and antibiotics. Subsequent amateur negative and vaginal exam reassuring. Repeat ultrasounds with normal/ unchanged KULDEEP. MFM consulted, it was suspected that patient had high week and could be sent home with close follow-up. Since this time, patient has been followed up closely with Dr. West. Para: 4 : 7 Miscarriage: 2 (Jean Burroughs MD R2) History Past Medical History Narrative Medical Anxiety Insomnia ADHD Eczema (Jean Burroughs MD R2) Obstetric History Obstetric History Most recent- delivery at 36 weeks GA, vaginal 3 prior vaginal deliveries from 3840 weeks GA 1 early miscarriage (Jean Burroughs MD R2) Past Surgical History Narrative Surgical Tonsillectomy (Jean Burroughs MD R2) Family History Family History: Negative (Jean Burroughs MD R2) Social History Alcohol Use: No Tobacco Use: No Substance Abuse: No (Jean Burroughs MD R2) Allergies-Medications (Allergen,Severity, Reaction): Coded Allergies: No Known Allergies (Verified , 02/06/17) Uncoded Allergies: SEASONAL (Allergy, Mild, 06/13/09) Home Meds Active Scripts Zolpidem (Ambien)5 Mg Tab5 Mg PO HS PRN (INSOMNIA) #60 TAB Prov:Bartolo West MD 02/13/17 Reported Medications Zolpidem (Ambien)10 Mg TabUnknown Dose PO HS PRN (INSOMNIA) Ref 0 02/07/17 Venlafaxine (Effexor)75 Mg Tab75 Mg PO DAILY #30 TAB Ref 0 02/07/17 Physical Exam BP 140/91 HR 123 RR 20 T 98F Narrative GENERAL: Well-nourished, well-developed patient. SKIN: Warm and dry. HEAD: Normocephalic and atraumatic. EYES: No scleral icterus. No injection or drainage. ENT: No nasal drainage noted. Mucous membranes pink. Airway patent. NECK: Supple, trachea midline. No JVD. CARDIOVASCULAR: Tachycardic, predominately regular but frequent pauses suggestive of frequent PVC's RESPIRATORY: Breath sounds equal bilaterally. No accessory muscle use. ABDOMEN/GI: Abdomen soft, non-tender, bowel sounds present, no rebound, no guarding Gravid GENITOURINARY: External Genitalia: intact and normal in appearance Membranes: Amnisure negative Uterine Contractions: Irritability FHT's: Category: 1 Baseline: 150 Reactive: Y Variability: Mod Decels: None (Jean Burroughs MD R2) Data Data Orders Vital Signs (Adult) .ON ADMISSION (02/20/17 13:38) ^ Labor Status (02/20/17 13:38) Pamg-1 Test .ONCE (02/20/17 13:38) Us Ob Pelvis >14 Wks Fetus (02/20/17 ) (Jean Burroughs MD R2) MDM Medical Record Reviewed: Yes Narrative Course / MDM 41-year-old patient of Dr. West at 30 5/7 weeks (KAT 04/26/2017) who presents at request of Dr. West for Amnisure and assessment of amniotic fluid index via ultrasound -Recent treatment with Betamethasone x2 and antibiotics for suspected ROM; subsequently sent home w/ close follow-up -Maternal vital signs: BP 140/91, MHR 123 -Cat 1 rhythm -Amnisure negative Plan: -Will check US for KULDEEP, BPP -Cont EFM -Will monitor maternal VS and consider additional work-up Interval: US- per verbal report, patient with KULDEEP 16, normal BPP Repeat BP 124/66, HR 104 Updated plan: Patient reassured regarding normal KULDEEP and lack of ROM; patient may follow-up with Dr. West Regarding mild tachycardia, patient encouraged to discuss further w/ PCP regarding potential TSH check as outpatient Patient with normal (Jean Burroughs MD R2) Medical Record Reviewed: Yes Attending Attestation The exam, history, and the medical decision-making described in the above note were completed with the assistance of the resident provider. I reviewed and agree with the findings presented. I attest that I had a [id number] encounter with the patient on the same day, and personally performed and documented my assessment and findings in the medical record. (Isela Smith MD) Diagnosis Diagnosis: Primary Impression: No leakage of amniotic fluid into vagina Additional Impression: 30 weeks gestation of Disposition: DISCHARGE HOME Condition: Stable Jean Burroughs MD R2 February 20, 2017 14:11 Isela Smith MD February 20, 2017 14:35
[2017-02-20 14:22] VITALS: BP 124/66; PULSE 104
== END 2017-02-20 14:51 | disposition home or self-care (01) ==
LOC: HOBED 13:13
DX: O26.893 Other specified pregnancy related conditions, third trimester (principal); Z3A.30 30 weeks gestation of pregnancy
CPT/HCPCS: 76815; 84112; 99284

== ENCOUNTER 2017-03-04 22:51 | Emergency (ER) | payer OTHER ==
--- NOTE | 2017-03-05 00:03 | PD ---
HPI Chief Complaint bleeding Date Seen: March 05, 2017 Travel History International Travel<30 Days: No Contact w/Intl Traveler<30Days: No Known Affected Area: No History of Present Illness HPI This is a 41y/o at 32w3d who presented to the [facility] with reports of vaginal spotting this evening and came in right away. Pt reports leakage of fluid with a positive amnisure noted on which was positive again on repeat and finally negative the next day. She received antibiotics and completed a course of steroids. FFN negative on 03/02/2017. Pt denies contractions with reports of active movements. She believes her water is still "broken" from her last encounter. care with Dr. West, records reviewed, complicated by: 1. Aminsure positive times 2, then negative, s/p betamethasone on admission in , d/c after 1 week 2. AMA Para: 4 : 6 Miscarriage: 1 History Past Medical History Narrative Medical Anxiety ADHD Eczema Obstetric History Obstetric History 4 FT 1 sab Past Surgical History Narrative Surgical h/o Tonsillectomy Family History Family History: Negative Social History Alcohol Use: No Tobacco Use: No Substance Abuse: No Allergies-Medications (Allergen,Severity, Reaction): Coded Allergies: No Known Allergies (Verified , 02/06/17) Uncoded Allergies: SEASONAL (Allergy, Mild, 06/13/09) Home Meds Active Scripts Zolpidem (Ambien)5 Mg Tab5 Mg PO HS PRN (INSOMNIA) #60 TAB Prov:Bartolo West MD 02/13/17 Reported Medications Zolpidem (Ambien)10 Mg TabUnknown Dose PO HS PRN (INSOMNIA) Ref 0 02/07/17 Venlafaxine (Effexor)75 Mg Tab75 Mg PO DAILY #30 TAB Ref 0 02/07/17 Review of Systems Except as stated in HPI: all other systems reviewed are Neg Physical Exam Narrative GENERAL: Well-nourished, well-developed patient. SKIN: Warm and dry. HEAD: Normocephalic and atraumatic. EYES: No scleral icterus. No injection or drainage. ENT: No nasal drainage noted. Mucous membranes pink. Airway patent. NECK: Supple, trachea midline. No JVD. CARDIOVASCULAR: Regular rate and rhythm without murmurs, gallops, or rubs. RESPIRATORY: Breath sounds equal bilaterally. No accessory muscle use. BREASTS: Bilateral exam showed no masses , no retractions, no nipple discharge. ABDOMEN/GI: Abdomen soft, non-tender, bowel sounds present, no rebound, no guarding Gravid to 32 weeks size GENITOURINARY: External Genitalia: intact and normal in appearance Cervix: 1/L/P Uterine Contractions: none FHT's: Category: 1, appropriate for gestational age EXTREMITIES: No cyanosis or edema. BACK: Nontender without obvious deformity. No CVA tenderness. NEUROLOGICAL: Awake and alert. Motor and sensory grossly within normal limits. Five out of 5 muscle strength in all muscle groups. Normal speech. Data Data Vital Signs Reviewed: Yes Orders Vital Signs (Adult) .ON ADMISSION (03/05/17 00:01) ^ Labor Status (03/05/17 00:01) ^ Non Stress Test (03/05/17 00:01) Pamg-1 Test .ONCE (03/05/17 00:01) [facility] Medical Record Reviewed: Yes Interpretation(s) 41y/o at 32w3d with Amnisure negative and non blood on exam today. -reassuring status -no evidence of PTL Plan -d/c home -f/u with Dr. West as scheduled -reassuring about negative Amnisure Diagnosis Diagnosis: Primary Impression: 30 weeks gestation of Additional Impression: No leakage of amniotic fluid into vagina Disposition: 01 DISCHARGE HOME Condition: Stable Patient Instructions: General Instructions, Labor (ED) Additional Instructions: RETURN FOR CONTRACTIONS, LOSS OF FLUID (WATER BREAKING), VAGINAL BLEEDING, OR DECREASED MOVEMENT DRINK 8-10 LARGE GLASSES OF WATER EVERY DAY KEEP SCHEDULED APPOINTMENT WITH YOUR PROVIDER Departure Forms: Tests/Procedures Gayatri Patel MD March 05, 2017 00:03
== END 2017-03-05 00:20 | disposition home or self-care (01) ==
LOC: HOBED 22:51
DX: Z03.71 Encounter for suspected problem with amniotic cavity and membrane ruled out (principal); O09.523 Supervision of elderly multigravida, third trimester; Z86.59 Personal history of other mental and behavioral disorders; Z87.2 Personal history of diseases of the skin and subcutaneous tissue; Z3A.32 32 weeks gestation of pregnancy
CPT/HCPCS: 59025; 84112

== ENCOUNTER 2017-04-12 13:46 | Emergency (ER) | payer OTHER ==
[~2017-04-12] VITALS: Ht 172.7 cm; Wt 84.4 kg
[~2017-04-12 13:46] MED LIST changes: -OXYC1TAB63 PO
--- NOTE | 2017-04-12 14:42 | PD ---
HPI Chief Complaint Leaking fluid Date Seen: Apr 12, 2017 Travel History International Travel<30 Days: No Contact w/Intl Traveler<30Days: No Known Affected Area: No History of Present Illness HPI Patient is 41-year-old white female says sees Dr. West for care. Presents planning of leaking fluid fairly continual basis. Patient was here earlier had ultrasound done which showed normal fluid volume since she was here and is feeling this leakage she wanted to have it checked out". The heart rate tracing is reactive and she is not yair on a regular basis. Amnio sure is negative today and no gross leakage of fluid noted Para: 4 : 6 History Obstetric History Obstetric History 4 vaginal deliveries 1 early loss Social History Alcohol Use: No Tobacco Use: No Substance Abuse: No Allergies-Medications (Allergen,Severity, Reaction): Coded Allergies: No Known Allergies (Verified , 04/12/17) Uncoded Allergies: SEASONAL (Allergy, Mild, 06/13/09) Home Meds Active Scripts Zolpidem (Ambien)5 Mg Tab5 Mg PO HS PRN (INSOMNIA) #60 TAB Prov:Bartolo West MD 02/13/17 Reported Medications Zolpidem (Ambien)10 Mg TabUnknown Dose PO HS PRN (INSOMNIA) Ref 0 02/07/17 Venlafaxine (Effexor)75 Mg Tab75 Mg PO DAILY #30 TAB Ref 0 02/07/17 Review of Systems General / Constitutional: No: Fever, Weight Gain, Chills, Other Eyes: No: Diploplia, Blurred Vision, Visual changes, Pain, Photophobia HENT: No: Headaches, Vertigo, Lightheadedness Cardiovascular: No: Irregular Rhythm, Chest Pain or Discomfort, Palpitations, Tachycardia, Syncope, Varicosities, Edema, Cyanosis Respiratory: No: Cough, Short of Breath, Other Gastrointestinal: No: Nausea, Vomiting, Diarrhea Genitourinary: No: Decreased Urinary Output, Oliguria Musculoskeletal: No: Limited ROM, Weakness, Cramping, Edema, Pain Skin: No Rash, No Itching, No Dryness, No Lumps, No Change in Pigmentation, No Change in Nails, No Alopecia, No Lesions Neurologic: No: Weakness, Dizziness, Syncope, Focal Abnormalities, Coordination Problem, Headache, Slurred Speech, Seizures Psychiatric: No: Depression, Suicidal Ideations, Homicidal Ideation Endocrine: No: Heat Intolerance, Cold Intolerance, Polydipsia, Polyuria, Other Physical Exam Narrative GENERAL: Well-nourished, well-developed patient. SKIN: Warm and dry. HEAD: Normocephalic and atraumatic. EYES: No scleral icterus. No injection or drainage. ENT: No nasal drainage noted. Mucous membranes pink. Airway patent. NECK: Supple, trachea midline. No JVD. CARDIOVASCULAR: Regular rate and rhythm without murmurs, gallops, or rubs. RESPIRATORY: Breath sounds equal bilaterally. No accessory muscle use. BREASTS: Bilateral exam showed no masses , no retractions, no nipple discharge. ABDOMEN/GI: Abdomen soft, non-tender, bowel sounds present, no rebound, no guarding Gravid to [-38] weeks size Fundal Height: [38-] GENITOURINARY: External Genitalia: intact and normal in appearance BUS glands: [-] Cervix: [-] Dilatation: [3-] Effacement: [30-] Station: [-3] Presentation: [vtx-] Membranes: [intact ] amnio sure negative Uterine Contractions: [no reg] FHT's: Category: [1-] Baseline: [133-] Reactive: [-yes] Variability: [-mod] Decels: [-0] EXTREMITIES: No cyanosis or edema. BACK: Nontender without obvious deformity. No CVA tenderness. NEUROLOGICAL: Awake and alert. Motor and sensory grossly within normal limits. Five out of 5 muscle strength in all muscle groups. Normal speech. Data Data Labs Amnio sure negative MDM Interpretation(s) Patient is 41-year-old white female 38 weeks presents clinically possibly leaking fluid. She had an ultrasound this morning [facility] that showed normal amniotic fluid. Amnio sure area on OB ED is negative, heart rate tracing is reactive and she is not yair, cervix is 3 thick and high Plan Plan to discharge home for just normal symptomatically treatment of her discomfort and she'll see Dr. Henriquez's and planning possible induction next week Diagnosis Diagnosis: Primary Impression: No leakage of amniotic fluid into vagina Disposition: 01 DISCHARGE HOME Condition: Stable Carter Guillen II, MD Apr 12, 2017 14:42
== END 2017-04-12 14:54 | disposition home or self-care (01) ==
LOC: HOBED 13:46
DX: O42.12 Full-term premature rupture of membranes, onset of labor more than 24 hours following rupture (principal); Z79.899 Other long term (current) drug therapy
CPT/HCPCS: 84112; 99283

== ENCOUNTER → 2017-04-12 | Outpatient (CLI) | payer OTHER ==
[~2017-04-12] MED LIST changes: +OXYC1TAB63 PO
== END ==
LOC: HPND 12:56
PROVIDERS: ATTEND Obstetrics & Gynecology
DX: O09.293 Supervision of pregnancy with other poor reproductive or obstetric history, third trimester (principal); O09.523 Supervision of elderly multigravida, third trimester
CPT/HCPCS: 76816; 76818

== ENCOUNTER 2017-04-19 05:49 | Inpatient (IN) | payer OTHER ==
[~2017-04-19] VITALS: Ht 162.6 cm; Wt 84.4 kg
[2017-04-19] MEDS ORDERED: PENICILLIN G POT 5,000,000 UNITS/NS 100 ML (Mini-Bag Plus) IV ONE ×2 (06:00)
[2017-04-19] MEDS ORDERED: NS 1000 ML IV PRN (06:30)
[2017-04-19] MEDS ORDERED: LACTATED RINGER'S 1000 ML BOLUS IV PRN (06:30)
[2017-04-19] MEDS ORDERED: CITRIC ACID-SODIUM CITRATE LIQ 30 ML UDC PO SCH (06:30)
[2017-04-19] MEDS ORDERED: MINERAL OIL 10 ML VIAL TOPICAL PRN (06:30)
[2017-04-19] MEDS ORDERED: LIDOCAINE HCL 1% 50 ML VIAL I-DERMAL PRN (06:30)
[2017-04-19] MEDS ORDERED: LIDOCAINE HCL 1% 50 ML VIAL INFIL PRN (06:30)
[2017-04-19] MEDS ORDERED: NS 500 ML BOLUS IV PRN (06:30)
[2017-04-19] MEDS ORDERED: ONDANSETRON HCL 4 MG/2 ML VIAL IV PRN (06:30)
[2017-04-19] MEDS ORDERED: LACTATED RINGER'S 1000 ML IV SCH (06:30)
[2017-04-19] MEDS ORDERED: OXYTOCIN 30 UNITS 500ML PREMIX IV ONE (06:30)
[2017-04-19 06:49] LABS: BLOOD, URINE NEG (NEG); COMMENT (UR) CULT NOT INDICATED; CULTURE IF INDICATED CULT NOT INDICATED; GLUCOSE,URINE NEG (NEG); KETONE, URINE NEG (NEG); MUCUS URINE FEW /lpf (OCC); NITRITE,URINE NEG (NEG); SQUAMOUS EPITHELIAL CELL URINE <1 /hpf (0-5); URINE COLOR YELLOW (YELLW/STRAW)
[2017-04-19 06:53] LABS: AUTOMATED NEUTROPHIL # 9.7 TH/MM3 (1.8-7.7); BASOPHIL # 0.1 TH/MM3 (0-0.2); BASOPHIL % 0.4 % (0.0-2.0); EOSINOPHIL # 0.2 TH/MM3 (0-0.4); EOSINOPHIL % 1.6 % (0.0-4.0); HEMATOCRIT 30.1 % (35.0-46.0); HEMO FLAGS DIFF FINAL; LYMPH % 14.4 % (9.0-44.0); LYMPHOCYTE # 1.9 TH/MM3 (1.0-4.8); MEAN CELL VOLUME 67.1 FL (80.0-100.0); MEAN CORPUSCULAR HEMOGLOBIN 21.1 PG (27.0-34.0); MEAN CORPUSCULAR HGB CONC 31.4 % (32.0-36.0); MONO % 9.9 % (0.0-8.0); NEUT % 73.7 % (16.0-70.0); PLATELET COUNT 222 TH/MM3 (150-450); RED BLOOD COUNT 4.49 MIL/MM3 (4.00-5.30); WHITE BLOOD COUNT 13.2 TH/MM3 (4.0-11.0)
[2017-04-19] MEDS ORDERED: OXYTOCIN 30 UNITS/NS 500ML PREMIX IV SCH (07:15)
[2017-04-19] MEDS ORDERED: PENICILLIN G POT 2,500,000 UNITS/NS 100 ML IV SCH ×2 (10:00)
[2017-04-19] MEDS ORDERED: DO NOT ADMINISTER ANTICOAGULANTS PRN (12:30)
[2017-04-19] MEDS ORDERED: fentaNYL 2MCG-BUPIV 0.125% 100 ML EPIDURAL SCH (12:30)
[2017-04-19] MEDS ORDERED: NO SYSTEM NARCOTICS PRN (12:30)
[2017-04-19] MEDS ORDERED: ePHEDrine/NS 25 MG/5 ML SYR IV PRN (12:30)
[2017-04-19] MEDS ORDERED: ALUMINUM/MAGNESIUM/SIMETH 30 ML CUP PO PRN (15:00)
[2017-04-19] MEDS ORDERED: SODIUM CHLORIDE 0.9% FLUSH 10 ML FLUSH IV FLUSH PRN (15:00)
[2017-04-19] MEDS ORDERED: ONDANSETRON ODT 4 MG TAB PO PRN (15:00)
[2017-04-19] MEDS ORDERED: OXYTOCIN 30 UNITS-500ML PREMIX 500 ML IV ONE (15:00)
[2017-04-19] MEDS ORDERED: OXYTOCIN 10 UNIT/ML AMP XX PRN (15:00)
[2017-04-19] MEDS ORDERED: ZOLPIDEM TARTRATE 5 MG TAB PO PRN (15:00)
[2017-04-19] MEDS ORDERED: ACETAMINOPHEN 325 MG TAB PO PRN (15:00)
[2017-04-19] MEDS ORDERED: BENZOCAINE 20% TOPICAL SPRAY 60 ML CAN TOPICAL PRN (15:00)
--- NOTE | 2017-04-19 15:01 | PD.OB.DELI ---
Delivery Date: Apr 19, 2017 Anesthesia: Epidural Episiotomy: None Vaginal Delivery: Normal Presentation: Occiput anterior Nuchal Cord: x1 Delayed cord clamping (45 sec): No Infant: Female, Single Placenta: Spontaneous delivery, Intact, 3 vessel cord Laceration: No lacerations Bartolo West MD Apr 19, 2017 15:01
[2017-04-19] MEDS ORDERED: DIPHTH/TETANUS/ACEL PERTUSSIS (BOOSTER) 0.5 ML VIAL/PFS IM ONE (16:00)
[2017-04-19] MEDS ORDERED: MEASLES, MUMPS, RUBELLA VACCINE 0.5 ML VIAL SQ ONE (16:00)
[2017-04-19] MEDS: oxyCODONE/ACETAMINOPHEN 5 MG/325 MG TAB PO PRN ×2 (17:24→21:16)
[2017-04-19] MEDS: WITCH HAZEL 50%/GLYCERIN 12.5% 40 PAD JAR TOPICAL PRN (17:25)
[2017-04-19] MEDS ORDERED: SODIUM CHLORIDE 0.9% FLUSH 10 ML FLUSH IV FLUSH SCH (21:00)
[2017-04-19] MEDS: ZOLPIDEM TARTRATE 10 MG TAB PO SCH (21:16)
[2017-04-20] MEDS: oxyCODONE/ACETAMINOPHEN 5 MG/325 MG TAB PO PRN ×6 (01:43→23:58)
[2017-04-20] MEDS: DOCUSATE SODIUM 50 MG/SENNA 8.6 MG TAB PO PRN ×2 (01:43→19:28)
[2017-04-20] MEDS: IBUPROFEN 600 MG TAB PO PRN ×3 (05:44→19:28)
[2017-04-20] MEDS: VENLAFAXINE HCL XR 75 MG CAP PO SCH (09:23)
--- NOTE | 2017-04-20 15:46 | HHI.OB ---
Subjective Post Day: 1 Remarks PPD # 1 s/p doing well, bleeding lessening this afternoon Objective Vitals/I&O Vital Signs Date Time Temp Pulse Resp B/P Pulse Ox O2 Delivery O2 Flow Rate FiO2 04/20/17 02:43 18 Objective Remarks GENERAL: Well-nourished, well-developed patient. CARDIOVASCULAR: Regular rate and rhythm without murmurs, gallops, or rubs. RESPIRATORY: Breath sounds equal bilaterally. No accessory muscle use. ABDOMEN/GI: Abdomen soft, non-tender. Fundus: Firm, non-tender at umbilicus. GENITOURINARY: Light to moderate bleeding. EXTREMITIES: No cyanosis or edema, non-tender, without signs of DVT. Medications and IVs Current Medications Medications (Trade) Dose Ordered Sig/Nat Route Start Time Stop Time Status Last Admin Ondansetron HCl 4 mg 4 mg Q6H PRN IV 04/19/17 06:30 (Pfizerpen-G Inj/ NS Inj) 100 ml @ 200 mls/hr Q4H IV 04/19/17 10:00 04/19/17 10:17 Mineral Oil 10 ml 10 ml UNSCH PRN TOPICAL 04/19/17 06:30 Lactated Ringer's 1,000 ml @ 125 mls/hr Q8H IV 04/19/17 06:30 04/19/17 06:51 Lactated Ringer's 1,000 ml @ 3,000 mls/hr BOLUS PRN IV 04/19/17 06:30 04/19/17 11:12 Sodium Chloride 500 ml @ 1,000 mls/hr BOLUS PRN IV 04/19/17 06:30 Sodium Chloride 1,000 ml @ 100 mls/hr Q10H PRN IV 04/19/17 06:30 Oxytocin 500 ml @ 0 mls/hr TITRATE IV 04/19/17 07:15 04/19/17 07:21 (fentaNYL 2MCG-BUPIV 0.125% INJ) 100 ml @ 0 mls/hr TITRATE EPIDURAL 04/19/17 12:30 (NS Flush) 2 ml BID IV FLUSH 04/19/17 21:00 (NS Flush) 2 ml UNSCH PRN IV FLUSH 04/19/17 15:00 (Tylenol) 650 mg Q4H PRN PO 04/19/17 15:00 (Motrin) 600 mg Q6H PRN PO 04/19/17 15:00 04/20/17 12:00 (Americaine 20% Top Spr) 1 spray Q4H PRN TOPICAL 04/19/17 15:00 04/19/17 17:24 (Tucks Pads) 1 applic QID PRN TOPICAL 04/19/17 15:00 04/19/17 17:25 (Lara-Colace) 2 tab Q12H PRN PO 04/19/17 15:00 04/20/17 01:43 (Ambien) 5 mg HS PRN PO 04/19/17 15:00 (Mag-Al Plus Susp Liq) 15 ml Q8H PRN PO 04/19/17 15:00 (Zofran Odt) 4 mg Q6H PRN PO 04/19/17 15:00 (Percocet 5-325 Mg) 2 tab Q6H PRN PO 04/19/17 17:00 04/20/17 14:41 (Ambien) 10 mg HS PO 04/19/17 21:00 04/19/17 21:16 (Effexor Xr) 75 mg DAILY PO 04/20/17 09:00 04/20/17 09:23 Assessment/Plan Assessment and Plan PPD # 1 s/p doing well, routine care Discharge Planning plan for dc tomorrow Ariadna Gordon MD Apr 20, 2017 15:46
[2017-04-20] MEDS: ZOLPIDEM TARTRATE 10 MG TAB PO SCH (21:11)
[2017-04-20] MEDS: WITCH HAZEL 50%/GLYCERIN 12.5% 40 PAD JAR TOPICAL PRN (23:58)
[2017-04-21] MEDS: oxyCODONE/ACETAMINOPHEN 5 MG/325 MG TAB PO PRN ×2 (04:51→09:22)
[2017-04-21] MEDS: IBUPROFEN 600 MG TAB PO PRN ×2 (04:51→11:08)
[2017-04-21 05:51] VITALS: RESP 18
[2017-04-21] MEDS: VENLAFAXINE HCL XR 75 MG CAP PO SCH (09:21)
[2017-04-21] MEDS ORDERED: OXYC1TAB63 PO (10:02)
--- NOTE | 2017-04-21 10:03 | HHI.DCPOC ---
Discharge Care Plan Your Health Problems Are: Vaginal delivery Report Symptoms to Your Doctor -Temperature above 100.5 degrees -Redness, of incision or excessive or foul smelling drainage -Unusual pain or calf pain -Increased vaginal bleeding -Painful or difficulty urinating -Feelings of extreme sadness or anxiety after 2 weeks Goals to Promote Your Health * To prevent worsening of your condition and complications * To maintain your health at the optimal level Directions to Meet Your Goals Take your medications as prescribed Follow your dietary instruction Follow activity as directed Ensure plenty of rest for recovery Drink fluids for hydration Keep your appointments as scheduled Take your immunizations and boosters as scheduled If your symptoms worsen call your PCP, if no PCP go to Urgent Care Center or Emergency Room Smoking is Dangerous to Your Health. Avoid second hand smoke Call the 24-hour crisis hotline for domestic abuse at Ariadna Gordon MD Apr 21, 2017 10:03
--- NOTE | 2017-04-21 10:05 | HHI.DS ---
Admission Date Apr 19, 2017 at 05:49 Discharge Date: Apr 21, 2017 Admitting Diagnosis term IUP for induction Diagnosis: Delivery Date: Apr 19, 2017 Vaginal Delivery: Normal Infant: Female, Single Hospital Course uncomplicated Pt Condition on Discharge: Good Discharge Disposition: Discharge Home Discharge Instructions Diet Instructions: As Tolerated, No Restrictions Activities You Can Perform: Pelvic Rest Activities to Avoid: Sexual Activity Ariadna Gordon MD Apr 21, 2017 10:05
== END 2017-04-21 12:39 | disposition home or self-care (01) | DRG 775 ==
LOC: H2EA 05:49 → EEVIPCON 05:49 → H1EA 17:06
PROVIDERS: ADMIT Obstetrics & Gynecology; ATTEND Obstetrics & Gynecology
PROC: 10E0XZZ Delivery of Products of Conception, External Approach (ICD-10-PCS; principal; 2017-04-19)
PROC: 3E0S3CZ (ICD-10-PCS; 2017-04-19)
PROC: 00HU33Z Insertion of Infusion Device into Spinal Canal, Percutaneous Approach (ICD-10-PCS; 2017-04-19)
PROC: 3E033VJ Introduction of Other Hormone into Peripheral Vein, Percutaneous Approach (ICD-10-PCS; 2017-04-19)
DX: O75.89 Other specified complications of labor and delivery (principal); O99.343 Other mental disorders complicating pregnancy, third trimester; F41.9 Anxiety disorder, unspecified; O69.1XX0 Labor and delivery complicated by cord around neck, with compression, not applicable or unspecified; Z37.0 Single live birth; Z3A.40 40 weeks gestation of pregnancy
CPT/HCPCS: 59025; 81001; 85025; 90715; J2540; J2590; J7120